=== PATIENT | male | born 1990 | race Caucasian/White ===

== ENCOUNTER 2019-08-13 22:18 | Inpatient (IN) ==
--- OUTSIDE RECORDS SUMMARY | 2019-08-13 22:21 | External Medical Summary | Continuity of Care Document ---
:1990 Author Name Brennen Courtney, Provider Address Unavailable Unavailable , Care Team Providers Name Role Phone Carson Courtney, Mayito Unavailable [email or web address], [email or web address] Unavailable Unavailable Problems Active medical history not documented Allergies and Adverse Reactions Allergy history not documented Medications Medications not documented Procedures Procedures not documented Immunizations Immunizations not documented Plan of Treatment Planned Observations Planned Goals not documented Results No Known Results Results not documented
--- OUTSIDE RECORDS SUMMARY | 2019-08-13 22:21 | External Medical Summary | Continuity of Care Document ---
:1990 Author Name Brennen Courtney, Provider Address Unavailable Unavailable , Care Team Providers Name Role Phone Carson Courtney, Mayito Unavailable [email or web address] [email or web address], UNKNOWN Unavailable Unavailable Problems Active medical history not documented Allergies and Adverse Reactions Allergy history not documented Medications Medications not documented Procedures Procedures not documented Immunizations Immunizations not documented Plan of Treatment Planned Observations Planned Goals not documented Results No Known Results Results not documented
--- NOTE | 2019-08-13 22:57 | Emergency Department Note ---
Impression & Plan Seizure ED Provider Note NAME: AISHWARYA CALDERON AGE: 29 SEX: M ARRIVES VIA: Walk-In INFORMANT: Patient ED PROVIDER(S): Shannon Jordan DO CHIEF COMPLAINT: Altered mental status PLAN: Disposition: Admitted to the [facility] service Condition: Good MEDICAL DECISION MAKING: This is a 29-year-old male who presents to the emergency department after having an event last night and tonight where he had an altered mental status. The patient's episodes sound concerning for seizure. He went for CT scan of his brain here in the emergency department which was unremarkable. EKG was unremarkable. The patient had no further episodes while here in the emergency department. Laboratory studies were negative. The patient's episode last night was significant and included unresponsiveness, loss of control of his bladder, and seem to have a postictal phase afterwards whereas tonight's episode was much less significant but still concerning. Because the patient had to of these episodes within 24 hours of each other, I felt he would require inpatient care with neurology evaluation and EEG testing. I discussed the case with the [facility]ist and they will evaluate for further management. I discussed the Department of Transportation paperwork with the hospitalist and they will complete this on the floor. Triage Nursing notes reviewed and agree them. Vital Signs: reviewed and remarkable for hypertension Differential diagnosis: Cardiac dysrhythmia, electrolyte abnormality, hypoglycemia, hyponatremia, hypernatremia, seizure ER treatment provided: Seizure precautions were taken Diagnostics interpreted by me: ECG: Normal sinus rhythm at 73. No ischemia or ectopy noted. No ST segment elevation or signs of ischemia Cardiac Monitoring: Normal sinus rhythm at a rate of 68 Laboratory studies: See below Imaging studies: As per stat rad CT head: Comparison to November 01, 2006. The paranasal sinuses and mastoid air cells are normally aerated. There is no skull fracture or scalp hematoma. There is a normal gyral pattern of the brain. There is no mass lesion or midline shift. The aguillon-white matter differentiation is maintained. There is no evidence of acute large vessel infarct or intracranial hemorrhage. HPI: 29/M arrives for evaluation of an episode of blacking out. This is a 29-year-old male patient who had an event last night around 11:30 PM where he was at a friend's house and sitting in a chair where he became extremely nauseated and significantly diaphoretic. Friends noted that he seemed to blackout for approximately 60 to 90 seconds. The patient had snoring respirations and urinated himself. The patient was then laid down onto the floor and then slept for some time afterwards. The patient felt off most of the day but around 9:30 PM this evening began to feel nauseated again, diaphoretic and as if he were going to pass out again. He laid down on the floor and his symptoms seem to pass. The patient states that he thinks he had a similar episode approximately 3 to 4 years ago. The patient describes golfing yesterday and drinking lots of clear liquids prior to the event that occurred last evening. ROS: See above HPI for pertinent positives & negatives. A total of 10 systems reviewed and were otherwise negative. PAST MEDICAL HISTORY:ADD PAST SURGICAL HISTORY:None as per the patient FAMILY HISTORY:No family history of seizures SOCIAL HISTORY:The patient works in [employer]; he does occasionally drink alcohol but denies any other drug use HOME MEDICATIONS:See list ALLERGIES:None VITALS:See Below PHYSICAL EXAMINATION: HEENT: Head - normocephalic and atraumatic. Pupils are equal, round, and reactive to light. Extraocular eye muscles are intact and sclera are anicteric. Ears - bilaterally patent canals with noninjected tympanic membranes and no evidence of hemotympanum. Nose - moist nasal mucosa without discharge. Mouth - moist buccal mucosa. Oropharynx is nonerythematous and there is no tonsillar exudate or edema noted. Neck: Supple; no JVD, nuchal rigidity, cervical lymphadenopathy. Heart: Regular rate and rhythm. There is a normal S1 and S2 with no murmurs, clicks, or gallops appreciated. Lungs: Clear to auscultation bilaterally with no wheezes, rales, or rhonchi. Abdomen: Soft, completely nontender, nondistended, with good bowel sounds. There are no palpable pulsatile masses or hepatosplenomegaly. There is no guarding, rigidity, or rebound noted. Extremities: No evidence of cyanosis, clubbing, or edema. There are easily palpable peripheral pulses. Neuro:The patient is awake and alert, oriented to day, time, and place. Muscle strength is 5/5 in all 4 extremities. 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 There are no cerebellar signs. ED COURSE: Times/Reassessments: 10:53: The patient was evaluated in room C5. A complete history and physical was performed. A twelve-lead EKG was obtained as described above. An IV lock was initiated and labs were drawn as above. Seizure precautions were taken. An order was placed for continuous cardiac monitoring. The patient was in a normal sinus rhythm at a rate of 68. The patient will go for a CT scan of the brain The patient was reevaluated at this time. He had no further episodes of altered mental status while here in the emergency department. I reviewed the results of the CT scan and laboratory studies with the patient. I discussed the case with the [facility] hospitalist and they will evaluate for f urther management. Shannon Jordan, Past Med/Surg History Social History Feels Safe at Home: Yes Smoking Status: Never smoker Allergies Allergies Allergy/AdvReac Type Severity Reaction Status Date / Time No Known Allergies Allergy Unverified 08/13/19 22:52 Home Meds Home Medications Medication Instructions Recorded Confirmed dextroamphetamine-amphetamine 10 mg PO BID 08/13/19 08/13/19 Results & Data (ED) Vital Signs Vital Signs - 24 hr 08/13/19 22:47 08/13/19 23:02 08/13/19 23:30 Temperature 36.8 C Temperature Source Oral Pulse Rate 68 90 70 Pulse Rate from SpO2 Sensor 87 Respiratory Rate 20 20 24 Blood Pressure 137/97 169/94 H 155/69 H Blood Pressure Mean 110 108 123 Blood Pressure Position Sitting Pulse Oximetry 100 99 98 Oxygen Delivery Method Room Air Room Air Sepsis Recent Fever Within 48 Hours No Sepsis New/Unexplained Change in Mental Status No Sepsis Action Taken by Nursing No Action Required 08/14/19 00:08 08/14/19 00:30 08/14/19 01:00 Temperature Temperature Source Pulse Rate 69 79 68 Pulse Rate from SpO2 Sensor 70 79 69 Respiratory Rate 19 15 16 Blood Pressure 135/78 147/74 H 137/88 Blood Pressure Mean 92 108 94 Blood Pressure Position Pulse Oximetry 98 98 97 Oxygen Delivery Method Room Air Room Air Room Air Sepsis Recent Fever Within 48 Hours Sepsis New/Unexplained Change in Mental Status Sepsis Action Taken by Nursing 08/14/19 01:30 08/14/19 02:00 08/14/19 02:30 Temperature Temperature Source Pulse Rate 64 58 L 50 L Pulse Rate from SpO2 Sensor 64 62 50 L Respiratory Rate 16 20 19 Blood Pressure 125/79 116/57 L 130/77 Blood Pressure Mean 83 88 87 Blood Pressure Position Pulse Oximetry 97 96 95 Oxygen Delivery Method Room Air Room Air Room Air Sepsis Recent Fever Within 48 Hours Sepsis New/Unexplained Change in Mental Status Sepsis Action Taken by Nursing 08/14/19 03:00 Temperature Temperature Source Pulse Rate 49 L Pulse Rate from SpO2 Sensor 49 L Respiratory Rate 19 Blood Pressure 145/70 H Blood Pressure Mean 95 Blood Pressure Position Pulse Oximetry 96 Oxygen Delivery Method Room Air Sepsis Recent Fever Within 48 Hours Sepsis New/Unexplained Change in Mental Status Sepsis Action Taken by Nursing Laboratory Data Result diagrams: 08/13/19 23:25 08/13/19 23:25 Lab Results 08/13/19 08/13/19 08/13/19 Range/Units 23:25 23:25 23:39 WBC 11.49 H (4.8-10.8) K/uL RBC 5.80 (4.7-6.1) M/uL Hgb 18.2 H (14.0-18.0) g/dL Hct 53.1 H (42-52) % MCV 91.6 (80-100) fL MCH 31.4 (25-34) pg MCHC 34.3 (32-36) g/dL RDW Std Deviation 41.8 (36.4-46.3) fL RDW Coeff of Lionel 12.5 (11.5-14.5) % Plt Count 271 (130-400) K/uL MPV 10.6 H (7.4-10.4) fL Immature Gran % (Auto) 0.2 % Neut % (Auto) 76.1 % Lymph % (Auto) 15.3 % [place] % (Auto) 7.0 % Eos % (Auto) 1.2 % Baso % (Auto) 0.2 % Neut # (Auto) 8.74 H (1.4-6.5) K/uL Lymph # (Auto) 1.76 (1.2-3.4) K/uL [place] # (Auto) 0.81 H (0.11-0.59) K/uL Eos # (Auto) 0.14 (0-0.5) K/uL Baso # (Auto) 0.02 (0-0.2) K/uL Immature Gran # (Auto) 0.02 (0.00-0.02) K/uL Sodium 139 (136-145) mmol/L Potassium 3.7 (3.5-5.1) mmol/L Chloride 105 (98-107) mmol/L Carbon Dioxide 27 (21-32) mmol/L Anion Gap 7.0 (3-11) BUN 11 (7-18) mg/dl Creatinine 0.93 (0.6-1.4) mg/dl Est Cr Clr Drug Dosing 119.3 ml/min Est GFR ( Amer) 129.9 Est GFR (Non-Af Amer) 112.1 BUN/Creatinine Ratio 11.6 (10-20) Glucose 107 H (70-99) mg/dl Calcium 9.5 (8.5-10.1) mg/dl Magnesium 2.1 (1.8-2.4) mg/dl Total Bilirubin 0.3 (0.2-1) mg/dl AST 12 L (15-37) U/L ALT 24 (12-78) U/L Alkaline Phosphatase 80 (45-117) U/L Total Protein 7.6 (6.4-8.2) gm/dl Albumin 4.2 (3.4-5.0) gm/dl Globulin 3.4 (2.5-4.0) gm/dl Albumin/Globulin Ratio 1.2 (0.9-2) Urine Color Yellow Urine Appearance Turbid A (Clear) Urine pH 7.5 (4.5-7.5) Ur Specific [place] 1.019 (1.000-1.030) Urine Protein Negative (Negative) Urine Glucose (UA) Negative (Negative) Urine Ketones Trace H (Negative) Urine Blood Negative (Negative) Urine Nitrite Negative (Negative) Urine Bilirubin Negative (Negative) Urine Urobilinogen Negative (Negative) Ur Leukocyte Esterase Negative (Negative) Urine WBC (Auto) 1-5 (0-5) /hpf Urine RBC (Auto) 0-4 (0-4) /hpf U Hyaline Cast (Auto) 1-5 (0-5) /lpf U Epithel Cells (Auto) 10-20 H (0-5) /lpf Urine Bacteria (Auto) Negative (Negative) Administered Medications Sodium Chloride (Nss) 500 mls @ 125 mls/hr IV .Q4H SHERLY Stop: 09/13/19 01:14 Last Admin: 08/14/19 01:31 Dose: 125 mls/hr Documented by: [id number] Discharge Plan Visit Data Chief Complaint: Seizure Stated Complaint: SEIZURE LAST NIGHT, REOCCURING ED Provider: Shannon Jordan Discharge Problem: Seizure Forms Stand Alone Forms: My [facility] Prescriptions Prescriptions: No Action dextroamphetamine-amphetamine 10 mg tablet 10 mg PO BID RF: 0
[2019-08-13 23:46] LABS: Basophils # (auto) 0.02 K/uL (0-0.2); Basophils % (auto) 0.2 %; Eosinophils # (auto) 0.14 K/uL (0-0.5); Eosinophils % (auto) 1.2 %; Hematocrit (blood only) 53.1 % (42-52); Hemoglobin 18.2 g/dL (14.0-18.0); Immature Granulocytes # (auto) 0.02 K/uL (0.00-0.02); Immature Granulocytes % (auto) 0.2 %; Lymphocytes # (auto) 1.76 K/uL (1.2-3.4); Lymphocytes % (auto) 15.3 %; Mean Corpuscular Hemoglobin 31.4 pg (25-34); Mean Corpuscular Hgb Conc 34.3 g/dL (32-36); Mean Corpuscular Volume 91.6 fL (80-100); Mean Platelet Volume 10.6 fL (7.4-10.4); Monocytes # (auto) 0.81 K/uL (0.11-0.59); Neutrophils # (auto) 8.74 K/uL (1.4-6.5); Neutrophils % (auto) 76.1 %; Platelet Count 271 K/uL (130-400); RDW Coefficient of Variation 12.5 % (11.5-14.5); RDW Standard Deviation 41.8 fL (36.4-46.3); White Blood Count 11.49 K/uL (4.8-10.8)
[2019-08-13 23:53] LABS: Appearance Urine Turbid (Clear); Bacteria Urine Automated Negative (Negative); Bilirubin Urine Negative (Negative); Blood Urine Negative (Negative); Color Urine Yellow; Glucose Urine UA Negative (Negative); Ketones Urine Trace (Negative); Leukocyte Esterase Urine Negative (Negative); Nitrite Urine Negative (Negative); Protein Urine Negative (Negative); RBC Urine Automated 0-4 /hpf (0-4); Specific Gravity Urine 1.019 (1.000-1.030); Urobilinogen Urine Negative (Negative); pH Urine 7.5 (4.5-7.5)
[2019-08-14 00:07] LABS: Albumin Level 4.2 gm/dl (3.4-5.0); BUN Creatinine Ratio 11.6 (10-20); Calcium 9.5 mg/dl (8.5-10.1); Creatinine Clr Calc Pharmacy 119.3 ml/min; Est GFR (African American) 129.9; Est GFR (Non-African American) 112.1; Magnesium 2.1 mg/dl (1.8-2.4); Potassium 3.7 mmol/L (3.5-5.1)
[2019-08-14 00:10] LABS: Albumin Globulin Ratio 1.2 (0.9-2); Bilirubin,Total 0.3 mg/dl (0.2-1); Globulin 3.4 gm/dl (2.5-4.0); Total Protein 7.6 gm/dl (6.4-8.2)
[2019-08-14] MEDS: SODIUM CHLORIDE 0.9% 500 ML IV SCH ×2 (01:31→05:33)
[2019-08-14] MEDS ORDERED: POLYETHYLENE (MIRALAX) 17 GM PACK PO PRN (05:56)
[2019-08-14] MEDS ORDERED: ALBUTEROL HFA 8 GM INHALER INH PRN (05:56)
[2019-08-14] MEDS ORDERED: ACETAMINOPHEN 325 MG TAB PO PRN (05:56)
[2019-08-14] MEDS ORDERED: ONDANSETRON INJ 2 MG/ML 2 ML VIAL IV PRN (05:56)
[2019-08-14] MEDS ORDERED: NITROGLYCERIN SL 0.4 MG/TAB TAB SL PRN (05:56)
[2019-08-14] MEDS ORDERED: LORazepam 1.5 MG/3 ML VIAL IV PRN (05:56)
[2019-08-14] MEDS: SODIUM CHLORIDE 0.9% 1000ML 1,000 ML IV SCH ×2 (06:47→14:33)
--- NOTE | 2019-08-14 07:09 | CT Scan Report ---
CT head/brain wo con CT DOSE: 614.27 mGy.cm HISTORY: Mental status change seizure TECHNIQUE: Multiaxial CT images of the head were performed without the use of intravenous contrast. A dose lowering technique was utilized adhering to the principles of ALARA. Comparison: None. Findings: The paranasal sinuses and mastoid air cells are clear. The calvarium and skull base are int act. The ventricles and sulci are within normal limits. There is no mass, hematoma, midline shift, or acute infarct. Impression: No acute intracranial abnormality. ACT 112: Negative or not required by law. The above report was generated using voice recognition software. It may contain grammatical, syntax or spelling errors. Electronically signed by: Mayito George M.D. 08/14/2019 7:07 AM
--- NOTE | 2019-08-14 08:26 | Electrocardiogram Report ---
Test Reason : Blood Pressure : / mmHG Vent. Rate : 073 BPM Atrial Rate : 073 BPM P-R Int : 120 ms QRS Dur : 090 ms QT Int : 416 ms P-R-T Axes : 035 048 -04 degrees QTc Int : 458 ms Poor data quality, interpretation may be adversely affected Sinus rhythm with marked sinus arrhythmia Nonspecific T wave abnormality Inferior leads Abnormal ECG No previous ECGs available Confirmed by Claude Poole ([id number]) on 08/14/2019 8:26:36 AM Referred By: REFERRED SELF Confirmed By:Claude Poole
--- NOTE | 2019-08-14 08:53 | History and Physical Report ---
DATE OF ADMISSION: 08/14/2019 CHIEF COMPLAINT: Seizures. HISTORY OF PRESENT ILLNESS: A 29-year-old male with past medical history significant for attention deficit disorder, history of asthma, intermittent, presents with seizure episode. The patient lives with his roommates. Yesterday night, he had an episode of seizure. His roommate noticed that he was shaking body and he had incontinence of urine during the episode. It lasted for about couple of minutes and when he woke up, he was confused for about 20 minutes, then the same thing about to happen tonight, he had a same kind of feeling tonight, he laid down and then he came to the ER. Currently resting comfortably and hemodynamically stable. CT of the head and labs look okay. The patient says he had episodes of seizure about a year ago, but he was not on any medications at that time. Denies any headache, no blurred vision, no earache, no runny nose, no sore throat, no difficulty swallowing. No cough, no loss of sense of smell or taste. No shortness of breath, no chest pain, no nausea, no abdominal pain. Normal bowel and bladder movements. No rash. ALLERGIES: No known drug allergies. PAST MEDICAL HISTORY: As mentioned above. PAST SURGICAL HISTORY: Dental surgery. MEDICATIONS: Adderall 10 mg p.o. b.i.d. FAMILY HISTORY: Significant for maternal grandfather had lung cancer. Maternal grandmother had lung cancer. SOCIAL HISTORY: Single, lives with roommates. No smoking. Alcohol rare. No drug use. REVIEW OF SYMPTOMS: As per HPI. Rest of review of symptoms negative. PHYSICAL EXAMINATION: GENERAL: The patient is of moderate build, not in acute distress. VITAL SIGNS: Temperature 36.8, pulse 64, respiratory rate 17, blood pressure 142/75, oxygen 97% on room air. HEENT: No pallor, no icterus. Pupils equal, round, reactive to light. NECK: No JVD, no neck masses, no carotid bruits. CARDIOVASCULAR: S1, S2, regular rate and rhythm, no murmur, no gallop. RESPIRATORY SYSTEM: Normal AP diameter. No accessory muscle use. No wheezing, no crackles. ABDOMEN: Soft, bowel sounds present, nontender. No distention. CENTRAL NERVOUS SYSTEM: Cranial nerves II-XII grossly intact. Nonfocal. EXTREMITIES: No edema, no erythema. LABORATORY DATA: WBC 11.4, hemoglobin 18.2, hematocrit 53.1, platelets 271. Sodium 139, potassium 3.7, chloride 105, bicarbonate 27, BUN 11, creatinine 0.9, serum glucose 107, calcium 9.5, magnesium 2.1, total bilirubin 0.3, AST 12, ALT 24, alkaline phosphatase 80. Urinalysis is negative. CT of the head, preliminary report unremarkable. EKG: Sinus rhythm with marked sinus arrhythmia, rate of 73. ASSESSMENT AND PLAN: This is a 29-year-old male who presents with seizure episode. 1. Seizure episode: First one was about the other day night when he had shaking of the body and bladder incontinence and postictal state. Today felt the similar kind of feeling and came to the Emergency Room. His laboratories and CT of head are unremarkable. He says he had seizure about a year ago. Currently resting comfortably. We will place him on IV Ativan p.r.n. for any breakthrough seizures. Monitor in the med-telemetry. EEG. 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 2. History of attention deficit hyperactivity disorder: Continue Adderall. 3. Asthma: Albuterol p.r.n. 4. Deep venous thrombosis prophylaxis: Sequential compression devices. DISPOSITION: Admit to med-tele. Expect to discharge home and follow with family doctor. Level 1, full code. MTDD
[2019-08-14] MEDS: AMPHETAMINE ASP/SULF/DEXTRAMPH 10 MG TAB PO SCH ×2 (09:24→14:50)
--- NOTE | 2019-08-14 15:58 | Hospitalist Progress Note ---
Date of Service August 14, 2019 Assessment & Plan (1) Seizure: Seizure-like episode with shaking and incontinence of urine lasted for 2 minutes day before yesterday Has had a warning that he is going to have similar episode last evening Has been tired since then No history of drug and or alcohol abuse Denies any other neurological symptoms associated with Labs and imaging studies unremarkable except a hemoglobin of more than 18. EEG has been done Awaiting neuro evaluation and recommendation DVT prophylaxis SCDs Admission and Anticipated Discharge Date Admission Date: August 14, 2019 Subjective The patient was seen and examined in the medical telemetry unit He has had seizure-like episode last evening Denies any more seizures but feels weak and tired No history of seizures in the past and no history of alcoholism and/or drug abuse Review of Systems Review of Systems: All systems reviewed and are unremarkable except as noted below Neurologic: no loss of sensation, no tingling, no lack of coordination, no tremor(s), no abnormal movements and no seizure-like activity Physical Exam Physical Exam: Lying in bed comfortably Constitutional: well developed and well nourished; no acute distress and not ill appearing Eyes: PERRL, conjunctivae normal, anicteric sclerae ENMT: external ear and nose normal, oropharynx normal Neck: trachea midline, no thyromegaly Respiratory: normal respiratory effort; no respiratory distress Auscultation: lungs clear to auscultation bilaterally Cardiovascular: Rate/Rhythm: regular rate and regular rhythm Heart Sounds: no murmur Gastrointestinal (Abdomen): Inspection/Auscultation: abdomen normal to inspection and normal bowel sounds Percussion/Palpation: abdomen soft; abdomen not rigid Musculoskeletal: No acute arthritis involving any joints Neurologic: moves all extremities; no focal motor deficits Alert, awake and oriented x3 Results & Data Results & Data ([facility]) Vital Signs (Past 12 Hours) Vital Signs Temp Pulse Pulse Resp BP BP Pulse Ox 08/14/19 14:18 62 08/14/19 13:55 36.9 C 63 18 141/85 H 97 08/14/19 12:00 37.0 C 61 16 126/75 97 08/14/19 07:00 37 C 56 L 18 135/68 98 08/14/19 06:41 55 L 17 135/68 97 08/14/19 06:30 50 L 13 136/76 97 08/14/19 06:00 46 L 14 114/72 97 08/14/19 05:01 55 L 20 117/77 98 08/14/19 04:30 47 L 16 143/86 H 97 08/14/19 04:01 64 17 142/75 H 97 Laboratory Results Short CBC 08/13/19 Range/Units 23:25 WBC 11.49 H (4.8-10.8) K/uL Hgb 18.2 H (14.0-18.0) g/dL Hct 53.1 H (42-52) % Plt Count 271 (130-400) K/uL BMP 08/13/19 23:25 Sodium 139 Potassium 3.7 Chloride 105 Carbon Dioxide 27 BUN 11 Creatinine 0.93 Glucose 107 H Calcium 9.5 Liver Function 08/13/19 Range/Units 23:25 Total Bilirubin 0.3 (0.2-1) mg/dl AST 12 L (15-37) U/L ALT 24 (12-78) U/L Alkaline Phosphatase 80 (45-117) U/L Albumin 4.2 (3.4-5.0) gm/dl Urine 08/13/19 Range/Units 23:39 Urine Color Yellow Urine Appearance Turbid A (Clear) Urine pH 7.5 (4.5-7.5) Ur Specific [place] 1.019 (1.000-1.030) Urine Protein Negative (Negative) Urine Glucose (UA) Negative (Negative) Medications Administered Current Inpatient Medications Acetaminophen (Tylenol) 650 mg PO Q4H PRN PRN Reason: Pain or Fever Stop: 09/13/19 05:55 Albuterol (Ventolin Hfa) 2 puffs INH Q4H PRN PRN Reason: Shortness Of Breath Or Wheezing Stop: 09/13/19 05:55 Amphetamine/Dextroamphetamine (Adderall) 10 mg PO BID@0800,1400 [facility] Stop: 08/28/19 07:59 Last Admin: 08/14/19 14:50 Dose: Not Given Documented by: Sodium Chloride (Nss 1000ml) 1,000 mls @ 125 mls/hr IV .Q8H SHERLY Stop: 09/13/19 05:55 Last Admin: 08/14/19 14:33 Dose: 125 mls/hr Documented by: Lorazepam (Ativan) 1.5 mg in 3 mls @ 3 mls/min IV Q2H PRN PRN Reason: Breakthrough Seizures Stop: 09/13/19 05:55 Nitroglycerin (Nitrostat) 0.4 mg SL UD PRN PRN Reason: Chest Pain Stop: 09/13/19 05:55 Ondansetron HCl (Zofran) 4 mg IV Q6H PRN PRN Reason: Nausea Stop: 09/13/19 05:55 Polyethylene Glycol (Miralax Powder Packet) 17 gm PO DAILY PRN PRN Reason: Constipation Stop: 09/13/19 05:55
[2019-08-14] MEDS ORDERED: GADOBUTROL 65ML VIAL IV PRN (16:24)
--- NOTE | 2019-08-14 16:31 | Magnetic Resonance Report ---
MRI OF THE BRAIN COMBO CLINICAL HISTORY: Seizure. COMPARISON STUDY: CT of the brain dated 08/14/2019. TECHNIQUE: MRI of the brain was performed utilizing various T1 and T2-weighted sequences in the axial , sagittal, and coronal planes. Contrast-enhanced sequences were acquired following the administratio n of 8 cc of Gadavist. The examination is performed using the seizure protocol. FINDINGS: Brain parenchyma: The brain parenchyma is normal in appearance. There is no hemorrhage or mass effect . There is no restricted diffusion to suggest acute ischemia. No enhancing mass lesion is identified on the postcontrast images. Dodd-white matter differentiation is preserved. No extra-axial fluid luc ection is seen. The hippocampi are normal and symmetric. The cerebellar tonsils are normal in configu ration. Ventricles, sulci, and cisterns: Normal in configuration. Pituitary and sella: Unremarkable. Intracranial vasculature: Normal flow voids are maintained at the skull base. Orbits: The bony orbits are grossly intact. Orbital contents are normal in appearance. Sinuses and mastoids: Trace mucosal thickening is noted in the sphenoid sinuses. The remaining parana junaid sinuses are clear. There is a trace left mastoid effusion. Calvarium: Unremarkable. Cervical cord: Partially visualized cervical spinal cord is normal in morphology and signal intensity . IMPRESSION: No intracranial abnormality is identified. ACT 112: Negative or not required by law. Electronically signed by: Robb Burt M.D. 08/14/2019 4:30 PM
--- NOTE | 2019-08-14 17:36 | Consultation Report ---
DATE OF CONSULTATION: 08/14/2019 REASON FOR CONSULTATION: Possible seizure. HISTORY OF PRESENT ILLNESS: The patient is a 29-year-old right-handed male with a history of attention deficit disorder, for which he is on Adderall. On Tuesday, which is approximately 2 days prior to admission, the patient had golfed from 4:00 p.m. to 8:30 p.m., he was very conscious of it being warm and drank plenty of water and Gatorade. He was sitting at an apartment on a bench, felt lightheaded and lost consciousness, had tonic clonic activity for 2-3 minutes and was incontinent. He was confused for 20 minutes thereafter and he may have felt mildly sore, although did not bite his tongue. He had snoring respirations after, there may have been some pallor. No headache thereafter. The next evening, he felt lightheaded while seated, warm and felt as if he would lose consciousness. He laid down, was mildly sweaty, but did not lose consciousness. This was a similar feeling to what he had previously experienced. Five years ago, he was eating food he felt lightheaded, his ears rang and he had a 20-second loss of consciousness. It was accompanied by pallor and diaphoresis. He did not bite his tongue or wet himself; he was not sore thereafter. He may have had a vaccine that same day. He was not in pain at that time. Two years ago, he was in a bar in [place] and was drinking alcohol, although not excessive amounts. He was standing, felt lightheaded, had a 30-second episode of loss of consciousness, but no seizure activity, no tongue biting, incontinence or postictal confusion. In all of these episodes, the patient has otherwise been well. He has been eating and drinking well and his weight had been stable. There was no clear relationship to meals. There was no chest pain, palpitations or shortness of breath with these spells or otherwise. The patient drinks several glasses of wine once a week. There was no alcohol withdrawal. There was no substance abuse or withdrawal. None of his medicines were changed in dose. He has no history of seizure in youth. No history of febrile seizure. He did have multiple concussions while playing football. There is no family history of seizure. PAST MEDICAL HISTORY: ADD. PAST SURGICAL HISTORY: Tonsillectomy, wisdom teeth extraction. SOCIAL HISTORY: Does not smoke. Drinks several glasses of wine 1 day per week. No substance abuse. ALLERGIES: He has no known allergies. MEDICATIONS: Adderall. He may have taken Benadryl the night after the seizure. FAMILY HISTORY: Mother has back trouble. Father has syncope, which the patient does not know of his diagnosis, but he indicates it is not treatable and it is not cardiovascular. DIAGNOSTICS: Electrocardiogram showed sinus rhythm with marked sinus arrhythmia, nonspecific T-wave in the inferior leads; abnormal EKG. White count on admission 11.49, H and H 18/53, neutrophils mildly elevated at 8.7, glucose 107. Electrolytes otherwise unremarkable. Transaminases normal, calcium 9.5, magnesium 2.1. Urinalysis is negative with the exception of being turbid and trace ketones, 10-[address] of the head noncontrast is unremarkable. MRI of the brain with and without contrast is unremarkable. The patient's EEG is pending. PHYSICAL EXAMINATION: VITAL SIGNS: On admission, the patient's pulse has ranged from 49-63, blood pressure on admission was 145/70, on repeat the max blood pressure was 168/88 and the most recent 141/85, 36.9, 63, 18, O2 sat 97%. GENERAL: The patient is awake and alert, oriented x3. Normal speech and language. Affect appropriate. HEAD: Normocephalic, atraumatic. NECK: Supple. No carotid bruits. HEART: No heart murmurs. Heart is regular rate and rhythm. ABDOMEN: Soft, nontender. NEUROLOGIC: Pupils are equal, round, reactive to light. The optic nerves are unremarkable. There is normal wooten, motility, facial sensation and facial symmetry. Speech and language are normal. Tongue is midline. Motor: Normal tone and bulk. There is full strength, no drift. Normal rapid alternating movements. Wojsiu-my-zssh and hesy-bi-snba are normal. Reflexes may be mildly brisker on the left than the right. Toes are downgoing. Sensation is intact to light touch and temperature. IMPRESSION AND PLAN: This patient has had multiple episodes, which sound syncopal including accompanying diaphoresis, lightheadedness and pallor. The episode this past Tuesday is more suggestive of seizure. The duration is rather long for a Burch-Silva attack. Incontinence is unusual in syncope and the patient had a protracted period of postictal, w20 minutes; this argues in favor for seizure. Recommend EEG. Recommend cardiovascular evaluation including echocardiogram, telemetric monitoring, consider cardiology consultation. Consider long-term cardiac monitoring. We will determine whether or not to treat for seizure depending on the results of the EEG. I discussed this in detail with the patient in terms of our preliminary plan and treatment depending on the results of the diagnoses. We will follow with you. SALMA
[2019-08-14 20:07] LABS: Amphetamines+Metham, Urine Pos (Neg); Barbiturates, Urine Neg (Neg); Benzodiazepine, Urine Neg (Neg); Cocaine, Urine Neg (Neg); MDMA (Ecstacy), Urine Neg (Neg); Methadone, Urine Neg (Neg); Opiate, Urine Neg (Neg); Phencyclidine, Urine Neg (Neg)
[2019-08-14] MEDS ORDERED: LORazepam 0.5 MG TAB PO STA (22:26)
[2019-08-15] MEDS: SODIUM CHLORIDE 0.9% 1000ML 1,000 ML IV SCH ×2 (00:19→07:35)
[2019-08-15 06:42] LABS: Basophils # (auto) 0.03 K/uL (0-0.2); Basophils % (auto) 0.3 %; Eosinophils # (auto) 0.28 K/uL (0-0.5); Hematocrit (blood only) 47.6 % (42-52); Hemoglobin 16.1 g/dL (14.0-18.0); Immature Granulocytes # (auto) 0.02 K/uL (0.00-0.02); Immature Granulocytes % (auto) 0.2 %; Lymphocytes # (auto) 2.81 K/uL (1.2-3.4); Lymphocytes % (auto) 29.8 %; Mean Corpuscular Hemoglobin 31.2 pg (25-34); Mean Corpuscular Hgb Conc 33.8 g/dL (32-36); Mean Corpuscular Volume 92.2 fL (80-100); Mean Platelet Volume 10.5 fL (7.4-10.4); Monocytes # (auto) 0.81 K/uL (0.11-0.59); Monocytes % (auto) 8.6 %; Neutrophils # (auto) 5.48 K/uL (1.4-6.5); Neutrophils % (auto) 58.1 %; Platelet Count 251 K/uL (130-400); RDW Coefficient of Variation 12.4 % (11.5-14.5); RDW Standard Deviation 41.7 fL (36.4-46.3); Red Blood Count 5.16 M/uL (4.7-6.1); White Blood Count 9.43 K/uL (4.8-10.8)
[2019-08-15 07:15] LABS: Alanine Aminotransferase 20 U/L (12-78); Albumin Level 3.5 gm/dl (3.4-5.0); Aspartate Aminotransferase 6 U/L (15-37); BUN Creatinine Ratio 12.5 (10-20); Blood Urea Nitrogen 9 mg/dl (7-18); Calcium 8.8 mg/dl (8.5-10.1); Carbon Dioxide 25 mmol/L (21-32); Chloride 111 mmol/L (98-107); Creatinine Clr Calc Pharmacy 163.2 ml/min; Est GFR (African American) > 150.0; Est GFR (Non-African American) 130.9; Glucose 80 mg/dl (70-99); Magnesium 1.9 mg/dl (1.8-2.4); Potassium 3.7 mmol/L (3.5-5.1); Sodium 141 mmol/L (136-145)
[2019-08-15 07:22] LABS: Albumin Globulin Ratio 1.3 (0.9-2); Alkaline Phosphatase 64 U/L (45-117); Bilirubin,Total 0.6 mg/dl (0.2-1); Globulin 2.8 gm/dl (2.5-4.0); Total Protein 6.3 gm/dl (6.4-8.2)
[2019-08-15] MEDS: AMPHETAMINE ASP/SULF/DEXTRAMPH 10 MG TAB PO SCH ×2 (08:39→13:28)
--- NOTE | 2019-08-15 13:02 | Electroencephalogram ---
EEG Procedure Note Date of Service August 14, 2019 Start / End Times Start Time: 07:53 End Time: 08:[address] Chucky MD History A 29-year-old male with new onset seizure. EEG performed for evaluation of epileptiform activity. Home Medication List Home Medications Medication Instructions Recorded Confirmed Type dextroamphetamine-amphetamine 10 mg PO BID 08/13/19 08/13/19 History Inpatient Medication List Amphetamine/Dextroamphetamine (Adderall) 10 mg PO BID@0800,1400 ON LICENSE OF [facility] Stop: 08/28/19 07:59 Last Admin: 08/15/19 08:39 Dose: Not Given Documented by: [id number] Admin: 08/14/19 14:50 Dose: Not Given Documented by: [id number] Admin: 08/14/19 09:24 Dose: 10 mg Documented by: [id number] Gadobutrol (Gadavist 65ml) 8 ml IV ONCE PRN PRN Reason: Interaction Checking Stop: 08/18/19 16:23 Last Admin: 08/14/19 16:25 Dose: 8 ml Documented by: [id number] Sodium Chloride (Nss 1000ml) 1,000 mls @ 125 mls/hr IV .Q8H SHERLY Stop: 09/13/19 05:55 Last Admin: 08/15/19 07:35 Dose: 125 mls/hr Documented by: [id number] Infusion: 08/15/19 07:35 Dose: 125 mls/hr Documented by: [id number] Admin: 08/15/19 00:19 Dose: 125 mls/hr Documented by: [id number] Infusion: 08/14/19 23:59 Dose: 125 mls/hr Documented by: [id number] Infusion: 08/14/19 16:31 Dose: 125 mls/hr Documented by: [id number] Infusion: 08/14/19 15:05 Dose: 0 mls/hr Documented by: [id number] Admin: 08/14/19 14:33 Dose: 125 mls/hr Documented by: [id number] Infusion: 08/14/19 14:33 Dose: 125 mls/hr Documented by: [id number] Admin: 08/14/19 06:47 Dose: 125 mls/hr Documented by: [id number] Discontinued Medications Sodium Chloride (Nss) 500 mls @ 125 mls/hr IV .Q4H SHERLY Stop: 07/30/20 01:14 Last Infusion: 08/14/19 05:58 Dose: 0 mls/hr Documented by: [id number] Admin: 08/14/19 05:33 Dose: 125 mls/hr Documented by: [id number] Infusion: 08/14/19 05:31 Dose: 125 mls/hr Documented by: [id number] Admin: 08/14/19 01:31 Dose: 125 mls/hr Documented by: [id number] Lorazepam (Ativan) 0.5 mg PO NOW STA Stop: 08/14/19 22:27 Last Admin: 08/14/19 22:41 Dose: 0.5 mg Documented by: [id number] Description This is a 21 electrode EEG with a single channel dedicated to limited EKG. The electrodes were placed in accordance with the International 10-20 system. REPORT: At the onset of the EEG the patient is awake. The back ground is symmetric. Posterior dominant rhythm is 10-11 Hz. There is a normal anterior to posterior gradient. Photic stimulation does not induce any abnormalities. No stage 2 sleep transients are recorded. IMPRESSION: This is a normal awake and drowsy routine EEG. No epileptiform discharges are recorded.
--- NOTE | 2019-08-15 13:53 | Hospitalist Progress Note ---
Date of Service August 15, 2019 Assessment & Plan (1) Seizure: Seizure-like episode with shaking and incontinence of urine lasting for 2 minutes MRI Brain:No intracranial abnormality is identified. EEG:This is a normal awake and drowsy routine EEG. No epileptiform discharges are recorded. ECHO: Normal transthoracic echocardiogram. Ejection fraction greater than 70%. Denies alcohol/drug abuse Appreciate Neurology Input Not started on any antiseizure medications, await for neurology input ADHD Continue Amphetamine DVT Px: SCDs Admission and Anticipated Discharge Date Admission Date: August 14, 2019 Subjective Patient is seen and examined at bedside States feeling tired Eager to get discharged No seizure-like activity overnight Denies chest pain, shortness of breath, dizziness, nausea, abdominal pain Review of Systems Review of Systems: All systems reviewed & are unremarkable except as noted in HPI & below Physical Exam Physical Exam: Physical Exam: Vitals signs as noted above General Appearance:Moderately built and nourished, no apparent distress Head: normocephalic, Atraumatic Eyes: normal inspection, EOMI Neck: supple, Trachea midline Respiratory/Chest: Normal breath sounds, CTA, No accessory muscle use Cardiovascular: S1, S2, No murmur Abdomen/GI:Soft, Non tender, Bowel sounds present Extremities/Musculoskelatal:normal inspection, no edema Neurologic/Psych:AAOX3, grossly no focal neurological deficits Skin: normal color, warm Results & Data Results & Data ([facility]) Vital Signs (Past 12 Hours) Vital Signs Temp Pulse Pulse Resp BP Pulse Ox 08/15/19 11:55 36.6 C 95 H 16 132/71 96 08/15/19 08:00 70 08/15/19 07:26 36.6 C 62 16 101/61 96 08/15/19 04:35 36.7 C 50 L 20 100/55 L 94 08/15/19 02:49 83 Laboratory Results Short CBC 08/15/19 Range/Units 06:01 WBC 9.43 (4.8-10.8) K/uL Hgb 16.1 (14.0-18.0) g/dL Hct 47.6 (42-52) % Plt Count 251 (130-400) K/uL BMP 08/15/19 06:01 Sodium 141 Potassium 3.7 Chloride 111 H Carbon Dioxide 25 BUN 9 Creatinine 0.68 Glucose 80 Calcium 8.8 Liver Function 08/15/19 Range/Units 06:01 Total Bilirubin 0.6 (0.2-1) mg/dl AST 6 L (15-37) U/L ALT 20 (12-78) U/L Alkaline Phosphatase 64 (45-117) U/L Albumin 3.5 (3.4-5.0) gm/dl
[2019-08-15] MEDS ORDERED: levETIRAcetam 500 MG TAB PO SCH (14:00)
--- NOTE | 2019-08-15 14:32 | Discharge Summary ---
Date of Service August 15, 2019 Admission HPI Per Admitting Provider CHIEF COMPLAINT: Seizures. HISTORY OF PRESENT ILLNESS: A 29-year-old male with past medical history significant for attention deficit disorder, history of asthma, intermittent, presents with seizure episode. The patient lives with his roommates. Yesterday night, he had an episode of seizure. His roommate noticed that he was shaking body and he had incontinence of urine during the episode. It lasted for about couple of minutes and when he woke up, he was confused for about 20 minutes, then the same thing about to happen tonight, he had a same kind of feeling tonight, he laid down and then he came to the ER. Currently resting comfortably and hemodynamically stable. CT of the head and labs look okay. The patient says he had episodes of seizure about a year ago, but he was not on any medications at that time. Denies any headache, no blurred vision, no earache, no runny nose, no sore throat, no difficulty swallowing. No cough, no loss of sense of smell or taste. No shortness of breath, no chest pain, no nausea, no abdominal pain. Normal bowel and bladder movements. No rash. Admission Exam Per Admitting Provider PHYSICAL EXAMINATION: GENERAL: The patient is of moderate build, not in acute distress. VITAL SIGNS: Temperature 36.8, pulse 64, respiratory rate 17, blood pressure 142/75, oxygen 97% on room air. HEENT: No pallor, no icterus. Pupils equal, round, reactive to light. NECK: No JVD, no neck masses, no carotid bruits. CARDIOVASCULAR: S1, S2, regular rate and rhythm, no murmur, no gallop. RESPIRATORY SYSTEM: Normal AP diameter. No accessory muscle use. No wheezing, no crackles. ABDOMEN: Soft, bowel sounds present, nontender. No distention. CENTRAL NERVOUS SYSTEM: Cranial nerves II-XII grossly intact. Nonfocal. EXTREMITIES: No edema, no erythema. Principal Diagnosis Seizure-like episode Discharge Data Allergies Allergy/AdvReac Type Severity Reaction Status Date / Time No Known Allergies Allergy Unverified 08/13/19 22:52 Consultations 08/14/19 01:20 ED Decision to Admit Stat 08/14/19 08:00 Consult Neurology Routine Procedures Performed MRI Brain:No intracranial abnormality is identified. EEG:This is a normal awake and drowsy routine EEG. No epileptiform discharges are recorded. ECHO: Normal transthoracic echocardiogram. Ejection fraction greater than 70%. Ordered Studies 08/13/19 23:15 CT head/brain wo con Urgent 08/14/19 14:01 MR brain seizure wo/w con Routine Hospital Course (1) Seizure: Seizure-like episode with shaking and incontinence of urine lasting for 2 minutes MRI Brain:No intracranial abnormality is identified. EEG:This is a normal awake and drowsy routine EEG. No epileptiform discharges are recorded. ECHO: Normal transthoracic echocardiogram. Ejection fraction greater than 70%. Denies alcohol/drug abuse Appreciate Neurology Input Started on Keppra 500 mg twice daily Needs outpatient electronic device monitor, ambulatory EEG Advised patient not to drive until cleared by his neurologist. Also advised patient to discuss with his physician regarding amphetamine use while on Keppra ADHD Continue Amphetamine DVT Px: SCDs Total Time Total Time Spent Total Time Spent (In Minutes): 40 minutes Discharge Plan Discharge Items Patient Disposition: Home - Self-Care Reason For Visit: SEIZURE Discharge Diagnosis: Seizure-like episode Activity: Per Instructions section Exercise/Sports: Gradually increase as tolerated Driving/Machine Use: No driving until cleared by your neurologist. Non-emergency contact: Primary Care Provider and Neurologist Call non-emergency contact if: you have any medication questions, your symptoms worsen, your pain is not controlled, your pain is worsening, your pain is unusual for you, your pain is concerning for you and you have a fever Follow-up/Referrals: Martin Salmeron MD [Primary Care Provider] - Diet: Heart Healthy Addtl Attending Provider Instructions: Follow-up with Dr. Sanabria for primary care on August 21, 2019 at 11:00 AM Follow-up with your Neurologist Dr. Summers in 1 week as advised Discuss with your physician regarding amphetamine use, while on Keppra. Further recommendations as per your Neurologist. Get electronic device monitor, ambulatory EEG as outpatient as recommended by your neurologist. Take Keppra 500 mg twice a day until further recommendations by your neurologist. Driving is not permitted until cleared by your neurologist. Seek immediate medical attention if your symptoms reoccur or worsen Pending Studies at Discharge: No Stand-Alone Forms: Work/School Release (ED), [place] - [employer], Smoking Cessation Medications and DC Order Prescriptions: New levetiracetam [Keppra] 500 mg Tablet 500 mg PO BID 30 Days Qty: 60 RF: 0 Continued dextroamphetamine-amphetamine 10 mg tablet 10 mg PO BID RF: 0 Discharge Orders: Discharge Order (Routine); Ordered 08/15/19 Ordered By: Travis Covarrubias Admission Data Admit Date/Time: 08/14/19 05:23 Attending Provider: Travis Covarrubias Admit Provider: Rasheed Locke Primary Care Provider: Martin Salmeron Other Providers: Rasheed Locke ; Jacinda Samson ; Ralph Swenson ; Jacinda Coronado ; Eduardo Khan Other Interventions: Discharge Summary Assessment (RN) Last Done: 08/15/19 14:42 DC Date/Time DO NOT enter until pt leaves facility: 08/15/19 15:47
[2019-08-17 07:39] LABS: Amphetamine Urine, Confirm 3280 ng/mL (<250); Marijuana Quant, GCMS Urine 886 ng/mL (<5); Methamphetamine, Ur Confirm NEGATIVE ng/mL (<250)
== END 2019-08-15 15:47 | disposition home or self-care (01) | DRG 101 ==
LOC: ED 22:18 → SUATTDRO 08-14 05:23 → EDINP 08-14 05:23 → 2N 08-14 11:56